=== PATIENT | female | born 1995 | race Caucasian/White ===

== ENCOUNTER 2022-07-28 08:00 | Outpatient (RCR) | payer SELFPAY ==
--- NOTE | 2022-07-28 09:00 | BH.SGPN.GN ---
Behaviors/Verbalizations/Mental Status: [] Client alert and oriented, casually dressed and groomed. Eye contact good. Motor activity appropriate. Speech within normal limits. Affect constricted, mood anxious. Thoughts linear, logical, no signs of hallucinations or delusions. Reviewed client?s symptom tracker, no risk for suicidal ideation, plan, or intent as of 11/30/21. Client Response/Progress/Benefit: [] Client's first day in program and getting adjusted to group environment. Responded well to group by being attentive to others's as they shared. Client introduced herself to group and indicated that she wants to how to better manage her emotions while in this program.Responded well to feedback from other group members on positives they have gotten out of the program so far. She will continue IOP tx to increase coping skills, prevent decompensation, and increase overall functioning. Narrative Note: []
--- NOTE | 2022-07-28 10:10 | BH.SGPN.GN ---
Behaviors/Verbalizations/Mental Status: []Eye contact is good. Motor activity is appropriate. Appearance is casual. Speech is Appropriate. Mood is anxious and depressed. Affect is flat. Thoughts are linear and logical. No evidence of psychosis. Client Response/Progress/Benefit: []Pt was an active participant in group discussions and activities. Attentive during psychoeducation. Pt took notes during interactive discussion in which the group defined self-care and discussed its benefits. Worked with peers in a small group to identify myths related to self-care which included; Self-care is expensive, self-care is selfish, not everyone deserves self-care, self-care means a person is weak, and self-care takes up too much time. Pt participated in small groups where they worked to bust these self-care myths. Pt did well to relate experiential activity to the topic of self-care and its benefit to mental health. Benefited from increased awareness of self-care, its benefits, and the consequences of not utilizing self-care strategies. First day of IOP tx. Will continue in IOP to prevent decompensation, increase healthy coping, and improve functioning.? Narrative Note: []
--- NOTE | 2022-07-28 10:33 | BH.COMM ---
Communication Note - Communication with Client Communication Note: Met with pt to complete initial paperwork. No significant changes since pre-admission screening. Completed [place] [facility]. Moderate risk. Pt reports having thoughts of killing herself daily within the last month, but denies intent. No active SI today. Pt has been getting Ketamine tx which pt reports has been significantly reducing her SI. Contracts for safety. Consulted with Dr. Rudd with plan to admit to IOP level of care with dx of MDD, recurrent, severe without psychosis F 33.2
--- NOTE | 2022-07-28 11:10 | BH.SGPN.GN ---
Behaviors/Verbalizations/Mental Status: []Pt alert and oriented, casually dressed and groomed. Eye contact good. Motor activity appropriate. Speech within normal limits. Affect congruent, mood anxious and depressed. Thoughts linear, logical, no signs of hallucinations or delusions. Client Response/Progress/Benefit: []Pt engaged participant AEB completing self-assessment worksheet and providing input throughout discussion. Participated in group discussion on the various areas of self-care. Pt completed worksheet identifying current self-care practices and what self-care activities pt wants to start using. Pt selected emotional self-care to begin practicing more consistently. Pt plans to do this by challenging herself to journal and practice self-reflection. Appeared to benefit from completing the self-care evaluation and gaining insights into current self-care practices, as well as identifying areas in which pt ?would like to improve upon. Pt?s first day of IOP tx. ?Will continue IOP tx to prevent decompensation, improve daily functioning, and increase healthy coping skills. ??? Narrative Note: []
--- NOTE | 2022-08-01 09:05 | BH.SGPN.GN ---
Behaviors/Verbalizations/Mental Status: []Eye contact good, casually dressed, motor activity appropriate, speech normal rate and tone, mood depressed and anxious, congruent affect, thoughts linear and intact, no evidence of delusions or hallucinations. Reviewed pt's symptom tracker, suicidal ideation within baseline, pt denies plan, or intent as of this date. Future oriented. Client Response/Progress/Benefit: []Pt responded well to session, attentive and willing to process with group. Pt reports feeling anxious this morning as she is new to group therapy and nervous about it. Pt did well to identify current mental health wins which included coming back for her second day in the program despite feeling unsure about it. Additional win noted as completing the final session of ketamine tx. Expressed that this has actually been helpful for her and she feels more hopeful about IOP tx as a result. Appeared to benefit from group?discussion and supportive environment. Recommended continued IOP tx to continue to improve healthy skills, promote anxiety management, as well as prevent decompensation. Narrative Note: []
--- NOTE | 2022-08-01 11:10 | BH.SGPN.GN ---
Behaviors/Verbalizations/Mental Status: [] Client alert and oriented, casually dressed and groomed. Eye contact intense. Motor activity appropriate. Speech within normal limits. Affect flat, mood anxious. Thoughts linear, logical, no signs of hallucinations or delusions. Client Response/Progress/Benefit: [] Client receptive of session with still adjusting to group environment, engaged throughout AEB actively listening and contributing to discussion when prompted, as well as taking notes. Client participated in the experiential activity, but struggled to communicate ideas with peers and manage emotions. Client and group processed how the emotions and perspective of the group impacted the activity. Group worked together to identify different coping skills to help manage pitfalls. Client identified pitfalls they struggle with and shared wanting to work on thought challenging and processing events logically to help manage symptoms. Benefited from identifying personal pitfalls and strategies to overcome these pitfalls. Will continue IOP tx to increase overall functioning, prevent decompensation and challenge negative thinking patterns. Narrative Note: []
--- NOTE | 2022-08-01 12:25 | BH.PSA_ITS ---
Suicide Assessment Treatment Plan Recommendations
--- NOTE | 2022-08-01 12:25 | BH.MTP ---
[facility] Plan - Patient Information Program Physician:: Dr. Nicole Stovall Primary Therapist:: Tammy WEBSTER - Psychiatric Diagnoses Psychiatric Diagnoses:: Major depressive disorder, recurrent, severe without psychosis F33.2; Generalized anxiety disorder Diagnosis Code(s):: F 33.2 - Estimated LOS Estimated LOS (in weeks):: 6 Problem/Goal #1 - Problem/Goal #1 Stated Goal:: Pt will decrease depressive symptoms, hopelessness, worthlessness, negative self-talk, and fleeting SI. Description of Barriers: Pt reports anxiety about group and admits to some stigma about mental health treatment. Pt endorses negative core beliefs of self and refers to herself as a people pleaser. Pt also reports not knowing herself fully which reinforces depression and isolation. Functional Impact: Pt is a 26 year-old female with a history of MDD and BRITTNEY. Pt was referred to [facility] tx by her outpatient psychiatrist, Dr. Hernandez, due to worsening depressive symptoms and fleeting SI. Pt has been unable to work for almost a month due to her worsening symptoms. Pt has been receiving Ketamine tx and this has helped some, but pt still endorses significant depression. Pt presents to [facility] with lack of motivation, anhedonia, avoidance, crying spells, hopelessness, worthlessness, low energy, increased sleep, isolative behaviors, and poor appetite. Pt has moved back home with her parents due to depression impacting her ADLs. Goal Relevant Strengths/Supports: Pt has strong support from her family and pt sees Dr. Hernandez for psychiatry. Pt has been getting Ketamine tx and reports this has helped reduced SI. - Objectives Objective #1 Stated Objective: Pt will learn and utilize 2-3 healthy coping strategies to better manage depressive symptoms and decrease DMS-5 symptoms for depression. Interventions: Through group and individual sessions, therapist will help pt identify triggers and warning signs of depression and guilt including emotional, physical, and behavioral changes. Therapist will teach pt various coping skills to manage symptoms and give pt tangible resources to use to regulate emotions. Therapist will use cognitive restructuring techniques and help pt gain awareness of negative thoughts that reinforce guilt and depression. Therapist will provide psychoeducation on maintenance cycles and help pt learn ways to break unhealthy maintenance cycles. Therapist will help pt incorporate behavioral activation and assist pt in setting SMART goals. Discharge Criteria: Pt will have met this goal when can report learning and using at least 2 coping skills to manage depressive symptoms and when pt's DSM-5 scores for depression decrease. Target Date: 09/08/22 Review Date: 08/18/22 Status: open Objective #2 Stated Objective: Pt will identify at least 2-3 negative self-talk messages used to reinforce negative core beliefs, worthlessness, and isolation and replace thoughts with balanced, realistic messages. Interventions: Therapist will help pt identify distorted, negative beliefs about self and replace with more realistic, affirmative messages. Therapist will use CBT and DBT to help pt increase insight to the connection between thoughts, emotions, and behaviors. Therapist will encourage pt to practice thought challenging. Discharge Criteria: Pt will have achieved this goal when can verbalize at least 2 cognitive distortions and effectively replace those thoughts with affirmative messages. Target Date: 09/08/22 Review Date: 08/18/22 Status: open Problem/Goal #2 - Problem/Goal #2 Stated Goal:: Pt will reduce anxiety, avoidance, and rumination while increasing ability to function on daily basis Description of Barriers: Pt reports anxiety about group and admits to some stigma about mental health treatment. Pt endorses negative core beliefs of self and refers to herself as a people pleaser. Pt also reports not knowing herself fully which reinforces depression and isolation. Functional Impact: Pt is a 26 year-old female with a history of MDD and BRITTNEY. Pt was referred to [facility] tx by her outpatient psychiatrist, Dr. Hernandez, due to worsening depressive symptoms and fleeting SI. Pt has been unable to work for almost a month due to her worsening symptoms. Pt has been receiving Ketamine tx and this has helped some, but pt still endorses significant depression. Pt presents to [facility] with lack of motivation, anhedonia, avoidance, crying spells, hopelessness, worthlessness, low energy, increased sleep, isolative behaviors, and poor appetite. Pt has moved back home with her parents due to depression impacting her ADLs. Goal Relevant Strengths/Supports: Pt has strong support from her family and pt sees Dr. Hernandez for psychiatry. Pt has been getting Ketamine tx and reports this has helped reduced SI. - Objectives Objective #1 Stated Objective: Pt will identify 2-3 anxiety triggers and 2 coping skills to use when feeling anxious to manage anxiety as shown by decreasing DSM-5 scores for anxiety. Interventions: Pt will provide education on anxiety, avoidance behaviors, and maintenance cycles. Therapist will help pt explore personal symptoms and warning signs of anxiety. Therapist will teach pt coping skills to improve emotional regulation, mindfulness, and distress tolerance to help pt cope with anxiety in the moment. Discharge Criteria: Pt will have accomplished this goal when can identify at least 2 triggers and report using 2 coping skills to manage anxiety. Additionally, pt will have accomplished this goal when DSM-5 scores show a reduction in symptoms. Target Date: 09/08/22 Review Date: 08/18/22 Status: open Objective #2 Stated Objective: pt will identify 2-3 cognitive distortions that lead to rumination and learn 2-3 ways to manage these thoughts to better manage anxiety Interventions: Therapist will provide education on the most common cognitive distortions and teach pt the connection between thoughts, emotions, and feelings. Therapist will assist pt in identifying, challenging, and replacing dysfunctional thoughts with positive, more realistic thoughts. Therapist will use CBT and DBT techniques to help pt gain awareness of thinking errors and learn how to more effectively handle negative thoughts. Discharge Criteria: Pt will have accomplished this goal when can identify at least 2 cognitive distortions and at least 2 coping skills to manage negative thoughts. Target Date: 09/18/22 Review Date: 08/18/22 Status: open
--- NOTE | 2022-08-01 12:25 | BH.PSA ---
Suicide Assessment Treatment Plan Recommendations
--- NOTE | 2022-08-01 12:25 | BH.PSA ---
Source of Information - Presenting Problems/Circumstances Problems, Referral Source, Mental Status, Client: Pt is a 26 year-old female with a history of MDD and BRITTNEY. Pt was referred to [facility] tx by her outpatient psychiatrist, Dr. Hernandez, due to worsening depressive symptoms and fleeting SI. Pt has been unable to work for almost a month due to her worsening symptoms. Pt has been receiving Ketamine tx and this has helped some, but pt still endorses significant depression. Pt presents to [facility] with lack of motivation, anhedonia, avoidance, crying spells, hopelessness, worthlessness, low energy, increased sleep, isolative behaviors, and poor appetite. Pt has moved back home with her parents due to depression impacting her ADLs. Psychiatric Presentation - Psych Issues & Need for Admission Psychiatric Issues:: Major depressive disorder, recurrent, severe without psychosis F33.2; Generalized anxiety disorder Past Psychiatric History - Treatment Hx Treatment History: Pt has a psychiatrist, Dr. Hernandez, for about 18 months. Pt has no psychiatric admissions in the past. No suicide attempts. She was first depressed in 12th grade and it was severe. Pt also first took meds in 12th grade and has been mostly off medication since that time. She has only taken 2 psych meds in the past which were Lexapro and Zoloft and they gave her side effects and she does not like taking them. She started IV ketamine on July 08, 2022 and this has been helpful and she has received 9 treatments. She first had counseling in 12th grade on and off since then but no counseling since 2 years ago. First hospitalization:: n/a Most recent hospitalization:: n/a Medication Trials:: Yes ECT Therapy:: No - No but pt has received Ketamine treatments Age of first mental health symptoms: See tx history Describe (age, circumstance, etc) any past hospitalizations: No admissions Current providers for mental health treatment (counselor, psychiatrist, medical case worker, etc.): Pt sees Dr. Hernandez at [place] [id number] for medication management. Pt does not have outpatient therapy. Development & Family of Origin - Childhood Significant Childhood Events: Pt grew up in a loving family and denies abuse. She does admit there was a lot of pressure and high expectations for her. - Family Who currently lives in your home?: Pt has a home in [place], but pt is currently staying with her parents in [place] while she gets mental health treatment. Describe family composition:: Pt's parents are and loving per pt's report. Pt is close with her family, especially her brother and his . Pt has a boyfriend of about a year and pt reports this is a good relationship. Pt has never been and has no children. - Family History Family Hx of Psychiatric or AOD Problems: Father has a history of depression and he has tried a lot of medications and has been resistant to most medications. He has had TMS in the past and has had an EEG as part of his work-up. There is a lot of depression on her father side of the family. Older brother has seasonal depression but is untreated. There is no suicides in the family. No substance abuse in the family. Ethnicity - Culture Do you identify yourself with any particular cultural, ethnic background, or community?: No - Sexuality Sexual Orientation: Heterosexual Mental Status - Memory Recent Memory: Good Remote Memory: Good - Concentration Concentration: Good - Eye Contact Eye Contact: Good - Speech Speech: Soft - Thought Process Thought Process: Ruminations Insight: Fair Judgment: Good - Orientation Orientation: Time, Person, Place, Situation - Appearance Appearance: Neat/clean - Mood Mood: Anxious, Depressed - Affect Affect: Flattened Suicide Assessment - Suicidal Ideation Have you ever felt like hurting yourself?: Yes Please explain:: Prior to receiving ketamine she was somewhat obsessed with suicidal ideation and was thinking about it all day. She has had thoughts of self-harm by cutting but she has never done any self-harm. Were you using ETOH/drugs at the time?: No Suicidal Intentional Rating Scale (SIRS): Current suicidal thoughts/No plan/Contracts for safety - admits to passive thoughts of but states that she is no longer having the suicidal ideation since the ketamine. Physician Notification: If Active suicidal thoughts/Will not contract for safety is checked, contact physician and document in the Physician Notification section below. Violent Behavior/Abuse History - Homicidal Ideation Do you have any homicidal thoughts? If so, explain:: No Is there a known potential victim? If yes, who:: No - Abuse Have you ever been abused?: No - Life Events Are there any other significant life events?: Hardships - Pt's depression has been impacting her ability to function in many areas such as socially and occupationally. Pt also is stressed about not knowing where she and her boyfriend will be going for her boyfriend's residency. - Safety Do you ever feel threatened in your home? If yes, describe:: No Adult Social History - Age 18 to Present Describe your current support system:: Boyfriend of 1 year who is a resident physician up in the [facility] and he is supportive of her. For primary support she has her mother and father, brother and [id number]. Substance Use - Substance Substance Use Type: Alcohol - She has a drink of alcohol about twice a month. No smoking and no vaping and no marijuana or illicit drug use. No rehab ever, Caffeine Leisure/Social Activities - Interests What do you enjoy or might be interested in learning about?: Pt enjoys being a nurse, being with her family, and skiing. Pt shares that one of her biggest stressors is not knowing who she is and not having any hobbies. Education & Occupational Histo - Education What is your level of education?: Bachelor Degree - She graduated high school and went to college. Became an RN. 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 Service - Service Have you ever been in the ?: No Legal History - Records Have you had any past legal charges?: No Do you have any current legal charges?: No Have you ever been incarcerated? If yes, describe:: No - Court Orders Have you had any past court orders for psychiatric treatment?: No Do you have a present court order for psychiatric treatment?: No Problem Checklist - Current Problem Areas Problem List: Nutritional/Eating pattern changes, Depressed mood/sad, Anxiety, Inattention, Sleep problems, Additional psychosocial stressors Discharge Planning Needs - Anticipated Follow-Up Mental Health Center (Name/Phone Number):: [id number] Private Therapist/Psychiatrist:: Dr. Hernandez Model Set Artist's Assessment - Client's Needs What are the client's strengths?: Pt has strong support from her family and pt sees Dr. Hernandez for psychiatry. Pt has been getting Ketamine tx and reports this has helped reduced SI. Diagnoses - Diagnoses Diagnosis #1:: Major depressive disorder, recurrent, severe without psychosis F33.2 Diagnosis #2:: Generalized anxiety disorder Interpretive Summary - Interpretive Summary Interpretive Summary: pt is a 26-year-old single female with a history of depression and anxiety who was referred to the [facility] by her outpatient psychiatrist, Dr. Hernandez, due to worsening symptoms of anxiety and depression. 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 Pt normally lives in [facility] alone but currently she is living with her parents in [facility] since July 04, 2022 when her depression worsened. This exacerbation of depression is the worst that she has ever experienced although she has had depression in the past. She is not aware of any trigger to the worsening of her depression. She is a worrier by nature and is having panic attacks about once a week now, but they are not severe like they have been in the past. She has a boyfriend of one year who is a resident physician up in the [facility] and he is supportive of her. For primary support she has her mother and father, brother and [id number]. She has been sleeping about 5 hours in the last week or so with some initial insomnia and wakes up during the night. 3 weeks ago she was sleeping a little better at 6 to 7 hours a night. Pt's depression was severe but she has been receiving 9 rounds of IV ketamine by her psychiatrist which she feels has improved her symptoms somewhat. She has much less suicidal ideation now and in fact denies suicidal ideation in the past week. She also states her energy level and appetite are a little better but she is still not back to her normal baseline. She is considering switching to intranasal ketamine from the IV ketamine treatment soon. Pt had an episode of depression in 2013 and took Lexapro for it but this but it was not severe like this episode. She has had ongoing anxiety and depression for years with minor flares and it is often controllable but this one has been the longest and the most severe episode. Prior to receiving ketamine, she was somewhat obsessed with suicidal ideation and was thinking about it all day. Pt shared she has had thoughts of not wanting to wake up, but this episode was the first time she ever had thoughts of actually killing herself. She was having difficulty completing her activities of daily living, decreased appetite and low energy which has improved since the ketamine. She has had thoughts of self-harm by cutting but she has never done any self-harm. She is anhedonic and feels some hopelessness and guilt. Pt feels she is a burden to her family and friends and admits to passive thoughts of but states that she is no longer having the suicidal ideation since the ketamine. She is a people pleaser by nature she says and is a worrier. She denies homicidal ideation, hallucinations, delusions, faina, eating disorder, PTSD, trauma, seizures, OCD or head trauma. She denies any substance abuse. Family history of depression and anxiety. Treatment Plan Recommendations - Recommendations Guidelines: Special needs identified to be included in the development of an individualized treatment plan regarding past psychiatric history and treatment, developmental events, family relationships/events/culture, past and/or current educational, occupational, social, and residential experience, and legal status. Recommendations:: Pt will start IOP as the structure, support, education and group therapy will hopefully prevent further worsening of pt's symptoms that might require hospitalization. Pt felt safe during the interview and if at anytime she does not feel safe she will let us know or go to the emergency room. Pt reports she is pleased with the results of the ketamine and does not want any medication changes now. Pt's outpatient psychiatrist will continue to manage her medications. Pt will need an outpatient therapist prior to discharge.
--- NOTE | 2022-08-01 12:25 | BH.MDN ---
Multi-Disciplinary Note - Note 30-min Individual Time Started:: 12:05 Date: 08/01/22 Purpose of session/treatment goals addressed:: To gather information on pt's current stressors, symptoms, triggers, and tx goals. Another goal was to build rapport and provide emotional support. Eye Contact:: Other - stares Motor Activity:: Appropriate Appearance:: Neat Speech:: Soft Mood:: Anxious, Depressed Affect:: Flat Thoughts:: Linear, Logical, No evidence of hallucinations/delusions noted Staff Interventions:: rapport building, strengths perspective, treatment planning, goal setting Client Response:: Pt responded well to session, open to meeting with therapist. Pt reports she is anxious about tx, but pt has been surprised by how nice everyone has been. Pt shared her symptoms have been worsening over the past few months and have been impacting all areas of her life. 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 This leads to pt people pleasing at work and feeling burnout from taking on too much. Pt also shared belief that she is too accommodating and she wants to work on being more assertive. Pt has had counseling in the past, but she shared she did not go consistently. Pt also reports wanting to work on confidence and not comparing herself so much to her mother. Pt receptive to meeting with therapist weekly and working on self-compassion, goal setting, and thought challenging. Pt will see Dr. Stovall this Monday08/03/22. Risks/Concerns:: Pt denies any active suicidal ideations, plan, or intent as of 08/01/22. Pt reports having fleeting suicidal ideations within the last month, but denies any intent. Pt is currently getting ketamine tx and reports this has been helpful. Progress Toward Goals/Plan:: Pt recently starting IOP tx and is anxious about the program, but she reports it is going better than anticipated. Pt reports her symptoms are impacting all areas of her life and have been so intense that she started ketamine treatment. Pt endorses a depressed mood, anhedonia, crying spells, fleeting suicidal ideations, isolative behaviors, lack of energy, negative thinking, and hopelessness. Pt will continue IOP tx to prevent decompensation, gain healthy coping skills, and help pt return to normal level of functioning. Time Stopped:: 12:25
--- NOTE | 2022-08-03 10:10 | BH.SGPN.GN ---
Behaviors/Verbalizations/Mental Status: []Pt alert and oriented, neatly dressed and groomed. Eye contact good. Motor activity appropriate. Speech within normal limits. Affect flat, mood dysthymic. Thoughts linear, logical, no signs of hallucinations or delusions. Client Response/Progress/Benefit: []Pt responded well to session, attentive during psychoeducation on SMART goals (Specific, Measurable, Achievable, Realistic, and Time-bound) and engaged in group experiential activity. Participated in an interactive discussion with peers in which they worked together to define what a goal is and the benefits of having goals. Group identified benefits as; gives purpose, ?keeps us moving,? and personal growth. Participated in interactive discussion in which group identified barriers to setting goals and following through with goals. Personal barriers included past experiences, fear, forgetfulness, and comparing herself to others. Benefited from increased awareness of benefits and strategies for goal-setting. Will continue in IOP to prevent decompensation, improve mood stability, and improve ability to combat distortions. Narrative Note: []
--- NOTE | 2022-08-03 10:20 | BH.NA ---
Physical Data - Vital Signs Pulse Rate: 62 Blood Pressure: 126/88 - Height/Weight Height: 1.68 m Weight:: 68.039 kg Weight in Pounds: 150.0 lbs Current Medication Compliance - Medication Compliance Do you take your medication as prescribed?: Yes Nutritional History - Appetite Nutritional Instructions:: If client shows signs of a swallowing problem, weight change of 10 pounds or more in the last month, or is on a diabetic diet, the physician will review and request a dietitian consult, as appropriate. All unintentional weight loss will be referred to the physician for decision on need for dietitian consult. Describe your appetite:: Fair - Client states she has not had significant weight change, but her appetite was decreased and is improving. Functional Assessment - Sleep Pattern Describe any problems with sleeping: Client states she is sleeping 5-6 hours per night. - Activities Motor Activity:: Functional Sensory/Communication Assess - Hearing Problems Do you have any hearing problems?: Adequate - Communication Problems Do you have difficulty understanding what people are saying?: No Learning Assessment - Education What is your level of education?: Bachelor Degree Medical Problems/History - Cardiac Conditions Cardiovascular: Other (See comments) - history of heart murmur as a baby- resolved - Pain Assessment Do you have acute or chronic pain?: No Surgical History - Surgical History Have you had any surgeries? If so, list type and date:: Yes - wisdom teeth extraction Substance Abuse - Substance Abuse Please describe substance abuse in the last 30 days:: Client states she occasionally socially drinks alcohol. Client denies tobacco or substance use. Client drinks 1-3 caffeine drinks per day, coffee and tea. Mental Status Summary - Mental Status Significant Findings/Observations on Appearance and Mood:: Client is alert and oriented x 4. Client is casually groomed with good hygiene. Clients voice has normal rate and volume. Client makes fair eye contact. Client's affect is slightly flat. Client makes logical associations and has normal processing. Client denies delusions/hallucinations. Client reports some passive SI. Suicide Assessment - Suicidal Ideation Are you currently or have you been suicidal in the past?: Yes - passive SI I wish I didn't wake up today, no plan or intent Suicidal Intentional Rating Scale (SIRS): Current suicidal thoughts/No plan/Contracts for safety Physician Notification: If Active suicidal thoughts/Will not contract for safety is checked, contact physician and document in the Physician Notification section below. Assault History/Potential Past Psychiatric History - MH Treatment Hx Past Psychiatric Medications:: Zoloft, Lexapro, a few doses of Ativan Age of first mental health symptoms: Client states she had her first major episode of depression around age 18. Client was first on medications for mental health at age 18. Describe (age, circumstance, etc) any past hospitalizations: None. Current providers for mental health treatment (counselor, psychiatrist, high risk case manager, etc.): Dr. Hernandez at [address] psychiatry. Fall Risk Assessment - Age Age: Less than 60 - Mental Status Mental Status: Willing & able to ask for assistance when needed - Physical Status Physical Status: No problems - Impairments Impairments: None - Elimination Elimination: Continent AND independent - Gait or Balance Gait or Balance: Walks independently - Hx of Falls History of falls in the past 6 months: No known history - Medications/Substances Psychotropics:: Antidepressants Medications/substances used within the past 24 hours or ordered to administer: 1-2 of the medications/substances listed above - Total Score Total Points:: 1 RN Summary of Impressions - Impressions Recommendations: Include psychiatric and medical issues, treatment planning recommendations, and discharge planning needs. Impressions: Psychiatric Issues: 1. Major depressive disorder, recurrent, severe without psychosis. 2. Generalized anxiety disorder - Level of Care How do the client's current symptoms and functional deficits support need for this level of care?: Client was referred to IOP by outpatient psychiatry for depression and SI. Client states she does not know what triggered her major depressive episode that really got intense at the beginning of June. She said her psychiatrist Dr. Hernandez started doing Ketamine infusions and her suicidal ideations (obsessive suicidal thoughts with plans) began to decrease but client states she still has passive SI, waking up in the morning and wishing she had not woke up. Client states she has been having panic attacks about once per week, and last had one Monday with her Ketamine infusion that she was given IV Ativan and Versed for. Client endorses crying spells, isolation and anhedonia. Client has been off work due to her mental health. IOP will promote gains and prevent further decompensation while providing social support and skills training.
[2022-08-03 10:44] VITALS: BP 126/88; PULSE 62
--- NOTE | 2022-08-03 11:10 | BH.SGPN.GN ---
Behaviors/Verbalizations/Mental Status: []Pt alert and oriented, neatly dressed and groomed. Eye contact good. Motor activity appropriate. Speech within normal limits. Affect constricted, mood anxious and depressed. Thoughts linear, logical, no signs of hallucinations or delusions. Client Response/Progress/Benefit: []Pt was engaged during discussion and willing to complete the worksheet challenging them to develop a personal SMART goal. Pt chose the goal of writing down one positive/ mental health win each night for a week. Pt stated this will benefit them by increasing confidence, building trust in herself, and increasing self-awareness. Pt identified barriers which included forgetfulness, making excuses, and negative thought patterns. Pt receptive to identifying solutions for these barriers and willing to begin working on this goal. Benefited from this group by developing a short-term SMART goal related to mental health. Will continue IOP tx to prevent decompensation, gain healthy coping skills to manage depression, and gain healthy supports. Narrative Note: []
--- NOTE | 2022-08-03 12:40 | PCM.BH.PSYEV ---
Psychiatric Evaluation Initial Evaluation Initial Evaluation: History of Present Illness: [] The patient is a 26-year-old single female with a history of depression and anxiety who was referred to the [facility] behavioral health IOP program by her outpatient psychiatrist due to worsening symptoms of anxiety and depression. 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 She lives in [facility] alone but currently she is living with her parents in the [facility] since July 04, 2022 when her depression worsened. This exacerbation of depression is the worst that she has ever experienced although she has had depression in the past. She is not aware of any trigger to the worsening of her depression. She is a worrier by nature and is having panic attacks about once a week now but they are not severe like they have been in the past. She has a boyfriend of 1 year who is a resident physician up in the [facility] and he is supportive of her. For primary support she has her mother and father, brother and [id number]. She has been sleeping about 5 hours in the last week or so with some initial insomnia and wakes up during the night. 3 weeks ago she was sleeping a little better at 6 to 7 hours a night. The patient's depression was severe but she has been receiving 9 rounds of IV ketamine by her psychiatrist which she feels has improved her symptoms somewhat. She has much less suicidal ideation now and in fact denies suicidal ideation in the past week. She also states her energy level and appetite are a little better but she is still not back to her normal baseline. She is considering switching to intranasal ketamine from the IV ketamine treatment soon. Patient had an episode of depression in 2013 and took Lexapro for it but this but it was not severe like this episode. She has had ongoing anxiety and depression for years with minor flares and it is often controllable but this 1 has been the longest and the most severe episode. Prior to receiving ketamine she was somewhat obsessed with suicidal ideation and was thinking about it all day. She was having difficulty completing her activities of daily living, decreased appetite and low energy which has improved since the ketamine. She has had thoughts of self-harm by cutting but she has never done any self-harm. She is anhedonic and feels some hopelessness and guilt. She feels she is a burden to her family and friends and admits to passive thoughts of but states that she is no longer having the suicidal ideation since the ketamine. She is a people pleaser by nature she says and in a worrier. She denies homicidal ideation, hallucinations, delusions, faina, eating disorder, PTSD, trauma, seizures, OCD or head trauma. She drinks 2 cups of coffee a day but no energy drinks. Current Psychiatric Medications: [] IV ketamine treatments as noted above. Prozac 20 mg p.o. daily and she has been on this dose for about 10 days. Past psych history: she has a psychiatrist Dr. Hernandez for about 18 months. She has no psychiatric admissions in the past. No suicide attempts. She was first depressed in 12th grade where it was severe. She first took meds in 12th grade and has been mostly off medication since that time. She has only taken 2 psych meds in the past which were Lexapro and Zoloft and they gave her side effects and she does not like taking them. She started IV ketamine on July 08, 2022 and this has been helpful and she has received 9 treatments. She first had counseling in 12th grade on and off since then but no counseling since 2 years ago. Substance Use History: [] She has a drink of alcohol about twice a month. No smoking and no vaping and no marijuana or illicit drug use. No rehab ever. Allergies: [] No known allergies. Medications: [] None except psych as noted above. Past Medical History: [] No medical illnesses. [place] teeth surgery in 2016. Fractured foot and broken finger and broken leg as a child. 0 para 0 and no control. Family Psychiatric History: [] Mother's and father are both about 56 years old. Father has a history of depression and he has tried a lot of medications and has been resistant to most medications. He has had TMS in the past and has had an EEG as part of his work-up. There is a lot of depression on her father side of the family. Older brother has seasonal depression but is untreated. There is no suicides in the family. No substance abuse in the family. Personal/Social History: [] The patient grew up in [facility] and moved to [facility] where she works as a pediatric nurse at [employer]. She moved back home since July 04 and took a leave of absence from work. She grew up in a loving family and denies abuse. She does admit there was a lot of pressure and high expectations for her. Her parents are well-known in [place] under father owns a very successful [employer] company in [place] and she has always felt a lot of pressure because of this. She has a brother lives near her in [place] who is very supportive along with his . The patient states she is not a talker about her feelings. The patient states she loves her mother but feels she is very different than her mother as her mother is positive and bubbly. She denies any trauma or PTSD. She enjoys being outside and going to the family's granda house on [address] in the summer and snow skiing in the winter. She graduated high school and went to college. Became an RN. Current relationship of 1 year is a serious and he is supportive of her with no abuse in the relationship. She had a serious boyfriend in the past that she was with for 3 years but this ended 18 months ago. Legal History: [] Has restaurant delivery driver's license. No DUIs and no arrests. Review of Systems: [] Negative except as noted in the present illness. Vital Signs: [] Vital signs are reviewed in the records and in the nurses notes and updated and the patient is deemed medically able to participate in the IOP program. Mental Status Examination: [] The patient is a 26-year-old female who appears normal for stated age and is casually dressed and groomed with good hygiene. She is alert and oriented to person place and time and is ambulatory with a normal gait. She is cooperative during the interview but is somewhat reticent with brief 1 or 2 word answers. She has no psychomotor agitation or retardation. Eye contact is good and speech is quiet but fluent with normal rate and rhythm and no pressure. Mood is depressed and anxious. Affect is quite flat. Thought process is goal-directed and organized. Thought content: There is evidence of passive thoughts of . There is no evidence of plan for suicide, current suicidal ideation, homicidal ideation, hallucinations or delusions. Reality testing is intact. Impulsivity is moderate. Judgment is intact. Intelligence is above average. Insight is fair to good. Diagnoses: [] 1. Major depressive disorder, recurrent, severe without psychosis 2. Generalized anxiety disorder 3. Primary support, work issues Plan: [] The patient will start the IOP program at [facility] as the structure, support, education and group therapy will hopefully prevent further worsening of the patient's symptoms that might require hospitalization. The patient felt safe during the interview and if it anytime she does not feel safe she will let us know or go to the emergency room. The risks, options, possible complications and side effects of the medications were discussed with the patient and she understands and accepts these. She is pleased with the results of the ketamine and does not want any medication changes now. She is offered a trial of Remeron but she does not want to risk any weight gain. The Prozac dose was increased 10 days ago so no other medication changes were made today. The patient does agree to try melatonin 5 or 10 mg p.o. at bedtime to help with sleep and if that does not work she is given a prescription for hydroxyzine 25 mg, 1-2 p.o. at bedtime to help with sleep and she can take 1 p.o. to help with the panic attack as long as she does not drive if she becomes drowsy. Prescription is sent in for this. The patient will continue to follow-up with her outpatient providers for her ketamine treatment and I will see the patient in follow-up while she is in the IOP program and in 1 to 2 weeks.
--- NOTE | 2022-08-03 12:55 | BH.DR.ITP ---
Initial Treatment Plan Patient Information Visit Information: ADMISSION DATE: EXPECTED LOS: 4-6 weeks Problems/Symptoms Problem #1:: Depression Symptom:: Sadness, hopelessness, worthlessness, guilt, anhedonia, biological disruption of sleep, fatigue, passive thoughts of Problem #2:: Anxiety Symptom:: Worry, rumination, panic attacks, avoidance
--- NOTE | 2022-08-08 09:00 | BH.SGPN.GN ---
Behaviors/Verbalizations/Mental Status: [] Eye contact is good. Motor activity is appropriate. Appearance is casual. Speech is Appropriate. Mood is euthymic. Affect is full. Thoughts are linear and logical. No evidence of psychosis. Reviewed daily check in sheet and pt reports 2/5 for suicidal thoughts and 2/5 for intent. This has been baseline. Client Response/Progress/Benefit: [] Pt participated at times during the group discussion. Attentive. Daily symptom tracker notes 4/5 for anxiety and 3/5 for depression and irritability. Shared with the group that she was able to utilize skills over the weekend to help manage through an out-of-town trip with her family. I used a lot of opposite-action. Increased mental stability and decreased depression in the past week however reports increased anxiety. Improved energy and motivation. Shared that she is learning to manage her emotional highs and lows with the help of counseling and medications. Stressor is poor sleep. Benefited from group support, encouragement, and feedback. Will continue in IOP to prevent decompensation, maintain safety, and improve functioning to return to work. Narrative Note: []
--- NOTE | 2022-08-08 10:00 | BH.SGPN.GN ---
Behaviors/Verbalizations/Mental Status: []Eye contact is good. Motor activity is appropriate. Appearance is casual. Speech is Appropriate. Mood is anxious . Affect is congruent. Thoughts are linear and logical. No evidence of psychosis. Client Response/Progress/Benefit: []Pt was an active participant in group discussions and experiential activity, which is progress as pt has been passive in prior groups. Attentive during psychoeducation on resilience, sharing that to her resilience is being able to adjust when things change. Participated in interactive discussion with peers on the definition of resilience and where it comes from. Shared beliefs that resilience can be developed and has a genetic component. Group identified that resiliency can be impacted by; past experiences, learned behaviors, and limited or toxic supports. Shared she can connect with examples provided by fellow participants. Group also worked together to identify the benefits of being resilient and how it is related to mental health. Able to relate experiential activity of group juggle to topics of resilience. Worked well with peers in small group in which they identified factors that contribute to resilience. Benefited from increased awareness of resilience and the factors that contribute to building resilience. Will continue in IOP to prevent decompensation, improve self-compassion and use of healthy coping skills, as well as continue to improve functioning. Narrative Note: []
--- NOTE | 2022-08-08 11:10 | BH.SGPN.GN ---
Behaviors/Verbalizations/Mental Status: []Pt alert and oriented, neatly dressed and groomed. Eye contact good. Motor activity appropriate. Speech within normal limits. Affect congruent, mood euthymic and anxious. Thoughts linear, logical, no signs of hallucinations or delusions Client Response/Progress/Benefit: []Pt responded well to session AEB completing the resilience worksheet provided. Pt participated in the discussion and worked cooperatively with group to identify strategies to enhance each of the components discussed. Pt reports belief they already use resilience trait of??moving towards your goals? as pt can identify several things she has accomplished through hard work.?Pt stated they would like to continue to develop resilience trait of ?nurturing a positive view of self.? Pt seemed to benefit from discussing strategies for improving personal resilience and identifying resilience traits pt already possesses. Progress noted as pt reports utilizing healthy coping skills outside of IOP tx. Will continue IOP tx to improve daily functioning, reduce negative self-talk, and gain healthy coping skills. ? Narrative Note: []
--- NOTE | 2022-08-10 09:00 | BH.SGPN.GN ---
Behaviors/Verbalizations/Mental Status: [] Eye contact is good. Motor activity is appropriate. Appearance is casual. Speech is Appropriate. Mood is anxious. Affect is congruent. Thoughts are linear and logical. No evidence of psychosis. Reviewed daily check in sheet and pt reports 2/5 for suicidal thoughts and 2/5 for intent. This is baseline. Client Response/Progress/Benefit: [] - Pt participated at times during the group discussion. Attentive. Daily symptom tracker notes 3/5 for depression, anxiety, and irritability. Mental health wins include increased energy and motivation which led to baking which she enjoys. Shared that another win is that she is ?accepting? that it is beneficial for her to be on medications for mental health currently. Stressor is finding ?balance?. Her depression has decreased however her anxiety has increased and she is feeling pressure from family to remain active. Family is supportive however she feels burned out at times and wants to rest and family gets concerned if she sleeps or is not active. Group provided support and emphasized which was beneficial. Will continue in IOP to prevent decompensation, stabilize mood, and improve function to return to work. Narrative Note: []
--- NOTE | 2022-08-10 11:14 | BH.SGPN.GN ---
Behaviors/Verbalizations/Mental Status: [] Client alert and oriented, casually dressed and groomed. Eye contact good. Motor activity appropriate. Speech within normal limits. Affect congruent, mood euthymic. Thoughts linear, logical, no signs of hallucinations or delusions Client Response/Progress/Benefit: [] Client responded well to session AEB client listening attentively to others and providing input during group discussion. Client did well in the activity to be assertive and ask for feedback. Recognizes if group wasn't assertive in activity, they wouldn't have been successful. Discussed with group communication strategies used to make activity successful. Attentive during psychoeducation on interpersonal DBT skill VERENICE. Client set a goal to work on being more assertive and clear about what she needs indicating that it's easy for the conversation she intended to go a completely different direction. Client seemed to benefit from increasing awareness of healthy strategies to improve communication. Will continue IOP tx to improve thought processes to combat anxiety, increase self-awareness, and improve daily functioning. Narrative Note: []
--- NOTE | 2022-08-10 14:02 | BH.MDN ---
Multi-Disciplinary Note - Note 45-min Individual Time Started:: 10:20 Date: 08/10/22 Purpose of session/treatment goals addressed:: To work on identifying pt's maintenance cycles for depression and anxiety. Another goal was to discuss ways to increase self-awareness and identify pt's interests. Eye Contact:: Good Motor Activity:: Appropriate Appearance:: Neat Speech:: Soft Mood:: Anxious, Depressed Affect:: Congruent - tearful at times Thoughts:: Linear, Logical, No evidence of hallucinations/delusions noted Staff Interventions:: thought challenging, psychoeducation on: - maintenance cycles, CBT techniques, mindfulness skills - practiced PMR, strengths perspective, goal setting, taught coping skills, other - Gave pt homework to complete the values exploration handout. Client Response:: Pt responded well to session, open to meeting with therapist. Pt reports over the weekend she did a lot of social things which made pt feel good, but pt also noticed increased anxiety. Pt shared belief that her anxiety is becoming more apparent now that pt's depression is reducing. Normalized this and pt responded well to this validation. Pt receptive to learning about maintenance cycles and able to identify her personal maintenance cycles for depression and anxiety. Pt recognized that avoidance and isolation maintain depression and anxiety. Pt gained awareness that in her personal life she turns to avoidance when anxious which then triggers her depressive cycle. However, in pt's professional life, pt overcompensates when anxious which leads to burnout and apathy. Discussed how pt can break these cycles and still have balance for alone time and self-care. Pt recognized that not having hobbies reinforces these maintenance cycles. Pt receptive to completing a values exploration handout for increase self-awareness. Risks/Concerns:: Pt denies any active suicidal ideations, plan, or intent as of 08/10/22. Pt reports her depression is decreasing. Progress Toward Goals/Plan:: Pt continues to make progress towards her tx goals AEB her consistent attendance and her self-report of reduced depressive symptoms. Pt continues to have negative thought patterns and beliefs of self. Pt reports an increase in anxiety symptoms now that her depression is lifting. Pt receptive to learning about maintenance cycles and practiced PMR in session. Pt will continue IOP tx to reduce anxiety symptoms, increase self-compassion, and improve daily functioning. Time Stopped:: 11:08
--- NOTE | 2022-08-11 09:00 | BH.SGPN.GN ---
Behaviors/Verbalizations/Mental Status: [] Eye contact is good. Motor activity is appropriate. Appearance is casual. Speech is Appropriate. Mood is anxious. Affect is congruent. Thoughts are linear and logical. No evidence of psychosis. Reviewed daily check in sheet and pt reports 2/5 for suicidal thoughts and 2/5 for intent. This is baseline. Client Response/Progress/Benefit: [] Pt participated at [id number] during the group discussion. Attentive. Emotion for today is anxious. Daily symptom tracker notes 4/5 for anxiety and 3/5 for depression and irritabiity. She talked a great deal about the struggles that she has communicating openly with her family about her needs. Since her depression is improving she feels pressure to keep moving and being active and is fearful of burning out. I need to rest however feels that if she goes into her room to lay down her family will think she is regressing. She has brought this up before in group. Group encouraged her to communicate her needs to her family highlighting that the best way for them to know how to help you is to tell them. Group also normalized being introvert and needing isolation to recharge the batteries which was beneficial. Will continue in IOP to prevent decompensation, increase healthy coping, and to improve functioning to return to work. Narrative Note: []
--- NOTE | 2022-08-11 10:10 | BH.SGPN.GN ---
Behaviors/Verbalizations/Mental Status: []Client alert and oriented, casually dressed and groomed. Eye contact good. Motor activity appropriate. Speech within normal limits. Affect congruent, mood content and anxious. Thoughts linear, logical, no signs of hallucinations or delusions Client Response/Progress/Benefit: []Client responded well to session AEB providing input when prompted, taking notes, and listening attentively to others. Client was engaged throughout group discussion defining fixed mindset and what it can look like. Group identified several aspects of fixed mindset which included; negative outlook, difficulties taking criticism, absolute thinking, and unrealistic expectations of self/others. Group discussed how fixed mindset affects mental health and why we use fixed thoughts. Client participated in experiential activity encouraging clients to find solutions to a seemingly impossible task. Client identified personal fixed thoughts in session which included ?I?m broken?, ?I?m not fun?, and ?I?m not positive enough?. Client gained insight to how these fixed thoughts impact ability to achieve goals, self-talk, and keep client stuck in unhealthy cycles. Client appeared to benefit from increased knowledge of fixed mindset and self-awareness of personal fixed thoughts. Will continue IOP treatment to reduce depression, increase healthy coping behaviors and thought patterns, and to prevent decompensation. Narrative Note: []
--- NOTE | 2022-08-11 11:10 | BH.SGPN.GN ---
Behaviors/Verbalizations/Mental Status: []Pt alert and oriented, neatly dressed and groomed. Eye contact good. Motor activity appropriate. Speech within normal limits. Affect full, mood euthymic. Thoughts linear, logical, no signs of hallucinations or delusions. Client Response/Progress/Benefit: []Pt engaged during activity and discussion AEB providing some input, connecting with peers, as well as taking notes throughout. Pt did well to engage as group worked on identifying characteristics and benefits of adopting a growth mindset. Worked with fellow participants in reframing the example fixed thoughts into growth mindset thoughts. Reframed personal fixed thought of ?I?m not fun or positive enough? with growth mindset thought of ?I am enough the way I am.? Benefitted from discussing benefits of growth mindset and brainstorming strategies for prompting growth-mindset. Pt selected ?looking at the facts and that thoughts are thoughts not facts? as the coping skill pt wants to work on this week. Pt is doing well to engage and utilize coping skills discussed. Pt will continue IOP tx to increase mood stability, reduce negative thinking, and increase self-care. ? Narrative Note: []
--- NOTE | 2022-08-15 09:03 | BH.SGPN.GN ---
Behaviors/Verbalizations/Mental Status: []Eye contact good, casually dressed, motor activity appropriate, speech normal rate and tone, mood dysthymic and anxious, congruent affect, thoughts linear and intact, no evidence of delusions or hallucinations. Reviewed pt's symptom tracker, pt suicidal ideation and intent noted as 1/5 which is less then prior baseline, denies any current plan or intent as of this date. Future oriented. Client Response/Progress/Benefit: []Pt responded well to session, attentive and willing to process with group. Pt reports feeling ?stressed? this morning noting that this may be due to recent progress in using exposure therapy to address anxiety. Pt did well to identify wins, which included challenging herself to practice progressive muscle relaxation when anxious over the weekend rather than stay in bed as she would usually. Shared being able to accomplish several tasks despite her anxiety as a result. Additional win identified as making progress in working with her dog on behavioral issues which have been reinforcing his anxiety and her own. Current stressor identified as her boyfriend leaving for a new medical rotation for two weeks. Receptive of supportive feedback provided by the group and noted plans to continue to reach out to other supports throughout this time. Progress noted in continuing to apply skills learned thus far in IOP group. Recommended continued IOP tx to continue to improve consistent use of healthy anxiety management skills, promote mood stability, as well as prevent decompensation. Narrative Note: []
--- NOTE | 2022-08-15 10:10 | BH.SGPN.GN ---
Behaviors/Verbalizations/Mental Status: []Pt alert and oriented, neatly dressed and groomed. Eye contact good. Motor activity appropriate. Speech within normal limits. Affect congruent, mood euthymic and anxious. Thoughts linear, logical, no signs of hallucinations or delusions. Client Response/Progress/Benefit: []Pt was an engaged participant AEB providing input, listening to others, and taking notes. Participated in interactive group discussion on internal and external barriers to mental health progress. Pt described current reality using a roller coaster metaphor. Pt shared she feels ?like I just came down from the high of the holidays and crashed into depression.? Reported desired reality is still being on a roller coaster, but having less intense highs and lows. Pt?s strengths in her current reality included accepting the help and sharing in group. Pt shared personal barriers to desired realty include: fear of the unknown, pride, and isolation. Benefited from increased awareness of current barriers to progress as well as current/desired realities. Pt to continue IOP to improve work-related functioning, reduce negative thinking patterns, and increase mood stability. ? Narrative Note: []
--- NOTE | 2022-08-15 11:10 | BH.SGPN.GN ---
Behaviors/Verbalizations/Mental Status: []Pt alert and oriented, casually dressed and groomed. Eye contact good. Motor activity appropriate. Speech within normal limits. Affect congruent, mood euthymic. Thoughts linear, logical, no signs of hallucinations or delusions. Client Response/Progress/Benefit: []Pt engaged during activity, encouraging peers and contributed as group brainstormed ideas on how to cope with internal barriers that keep pts stuck from moving towards goals. Able to identify barriers to desired reality. Identified barriers to current reality to include: fear of unknown, negative self-talk, and pride (internalized mental health stigma). Pt wants to work on overcoming the barrier of pride by using positive self-talk. Benefited from group by identifying obstacles and solutions to desired reality.? Pt will continue IOP tx to continue use of healthy coping skills, challenge distorted thoughts, and prevent decompensation.
--- NOTE | 2022-08-17 09:00 | BH.SGPN.GN ---
Behaviors/Verbalizations/Mental Status: []Pt alert and oriented, neatly dressed and groomed. Eye contact good. Motor activity appropriate. Speech within normal limits. Affect congruent, mood depressed. Thoughts linear, logical, no signs of hallucinations or delusions. Reviewed pt?s symptom tracker, no risk for suicidal ideation, plan, or intent as of 08/17/22 Client Response/Progress/Benefit: []Pt responded well to session, attentive and receptive to encouragement. Pt shared multiple positives today, but reports feeling defeated. Pt shared she feels this way because she can see she has made progress, but pt still has to cope with a lot of unknowns that trigger anxiety. Group provided feedback and encouragement which pt appeared to benefit from. Pt able to give herself credit for using grounding skills, positive self-talk, and self-care recently. Pt is returning to her previous functioning in some ways, but pt is still not ready to return to work which causes anxiety. Pt will continue IOP tx to promote mood stability, improve daily functioning, and combat distortions. Narrative Note: []
--- NOTE | 2022-08-17 11:10 | BH.SGPN.GN ---
Behaviors/Verbalizations/Mental Status: []Eye contact is good. Motor activity is appropriate. Appearance is casual. Speech is WNL. Mood is euthymic. Affect is congruent. Thoughts are linear and logical. No evidence of psychosis. Client Response/Progress/Benefit: []Pt engaged participant AEB providing input during small group discussion and engaging in activity. Activity involved working with peers to answer questions related to psychoeducation on cognitive distortions and practicing reframing distorted thoughts. Pt collaborated with the group to determine the answers. Identified cognitive distortion struggles with the most as labeling and jumping to conclusions. Benefited from rehearsing ways to challenge/reframe cognitive distortions and by gaining increased insight into examples/definitions of 10 most common cognitive distortions. Will continue in IOP to challenge negative thoughts, improve ability to recognize accomplishments, and prevent decompensation.
--- NOTE | 2022-08-17 14:44 | BH.MDN ---
Multi-Disciplinary Note - Note 60-min Individual Time Started:: 12:10 Date: 08/17/22 Purpose of session/treatment goals addressed:: To work on goal #2 of pt's tx plan and to review progress since admission. Eye Contact:: Good Motor Activity:: Appropriate Appearance:: Neat Speech:: Appropriate Mood:: Anxious Affect:: Constricted Thoughts:: Linear, Logical, No evidence of hallucinations/delusions noted Staff Interventions:: thought challenging, motivational interviewing, CBT techniques, strengths perspective, reviewed DSM-5, other - completed a decisional balance and discussed topics to bring up with her partner. Client Response:: Pt responded well to session, open to meeting with therapist. Pt reports feeling overall better and her functioning has improved. However, pt is feeling highly anxious and unsure today because of all the unknowns. Pt received a text message from her boss asking about return to work which triggered anxiety. Pt is unsure if she wants to return to this job. Pt is also unsure where she and her boyfriend will be living in a few months and how her life could change. Pt receptive to breaking down these stressors, looking at what is in pt's control. Pt also identified the concerns and benefits pt has for two potential outcomes. By doing this, pt reported gaining awareness of conversations she wants to have with her boyfriend to clarify expectations and reduce anxiety. Pt plans to talk with her boyfriend nicky and hopes this will help pt express her needs and get on the same page. Risks/Concerns:: Pt denies any active suicidal ideations, plan, or intent as of 08/17/22. Pt's suicidal ideations have decreased by 33% since admission. Progress Toward Goals/Plan:: Pt is making progress towards her tx goals AEB pt's decrease in DSM-5 scores by 17% since admission and her self-report of improved overall functioning. Pt is consistent with attendance, actively engages, and pt completes personal goals and homework. Pt has numerous stressors and unknowns about her future that are triggering anxiety. Pt also continues to struggle with not knowing who she is, but she is working on this goal. Pt will continue IOP tx to promote mood stability, reduce negative thinking patterns, and increase ability to manage stressors. Time Stopped:: 13:05
--- NOTE | 2022-08-17 14:47 | BH.MTP_ITS ---
Treatment Plan Review Date of Admission:: 07/28/22 Date of Treatment Plan Review:: 08/17/22 Admitting Diagnoses:: Major depressive disorder, recurrent, severe without psychosis F33.2; Generalized anxiety disorder Current Diagnoses:: Major depressive disorder, recurrent, severe without psychosis F33.2; Generalized anxiety disorder Patient's Response to Treatment:: Pt has responded well to treatment AEB pt consistently attending IOP sessions and reduction of overall symptoms on the DSM-5 by 17% since admission. Pt contributes well during individual sessions and she is becoming more engaged during group sessions. Pt applies coping skills outside of IOP and reports overall mood is improved. Pt is consistent with her goals and reports improving functioning at home and increased social functioning. Status of Current Problems and Symptoms: Pt continues to report symptoms of depressive and anxiety, but her symptoms are decreasing. Pt's biggest stressors right now are there's so much unknown with pt's job and her boyfriend's residency placement. Pt also reports not knowing much about herself including her values and interests which reinforces depression. Pt also needs outpatient counseling, but pt is receptive to exploring providers. Problem #1 Problem Name:: hopelessness, worthlessness, negative self-talk, and fleeting SI Status of Goals:: Objective 1- in progress. Pt?s DSM-5 scores for depression reduced by 14% since admission and SI decreased by 33%. Pt reports improved energy and functioning, but her scores are still showing she experiences dep ressive symptoms more than half the days. Objective 2- in progress. Pt has gained awareness of cognitive distortions as well as self-compassion. Pt can identify distorted thought patterns and she is working on giving herself more credit. Team Recommendations:: Treatment tx encourages pt to continue working on this tx goal as pt has made progress, but she can continue to reduce intensity of depressive symptoms. Pt also can benefit from challenging distortions and giving herself credit more consistently. Pt is also working on increasing self- awareness to better understand her values and interests. Problem #2 Problem Name:: anxiety, avoidance, and rumination Status of Goals:: Objective 1-in progress. Pt?s DSM-5 scores for anxiety have decreased by 18% since admission. Pt reports feeling slightly more anxiety now that her depression is resolving. Pt reports using imagery and progressive muscle relaxation. Objective 2- in progress. Pt reports increased awareness of distortions and pt had done well to combat distortions with therapist. Pt working on staying in the moment and looking at the evidence when anxious. Team Recommendations:: Treatment team encourages pt to continue working on incorporating calming skills as well as communicating assertively to reduce anxiety and ruminations. Pt is also encouraged to identify boundaries and coping skills for return to work.
--- NOTE | 2022-08-18 09:05 | BH.SGPN.GN ---
Behaviors/Verbalizations/Mental Status: []Eye contact good, casually dressed, motor activity appropriate, speech normal rate and tone, mood euthymic and anxious, congruent affect, thoughts linear and intact, no evidence of delusions or hallucinations. Reviewed pt's symptom tracker, pt denies suicidal ideation, plan, or intent as of this date. Future oriented. Client Response/Progress/Benefit: []Pt responded well to session, attentive and willing to process with group. Pt reports feeling empowered this morning. Pt did well to identify wins, which included taking time to reflect on her common thought patters, and identify and replace any distortions that arise. Reports this has been helpful in aiding her in beginning to have a more hopeful perspective as well as see areas of her life that are in her control. Additional win noted as sharing about what she has learned and been working on in treatment with her boyfriend. Identified that was anxiety provoking but ultimately an empowering and beneficial experience as he was receptive and supportive. Progress noted in increased use of anxiety management skills and thought challenging. Recommended continued IOP tx to continue to improve consistent use of healthy emotion regulation skills, continue to gain insight into her goals for her future, as well as prevent decompensation. Narrative Note: []
--- NOTE | 2022-08-18 10:10 | BH.SGPN.GN ---
Behaviors/Verbalizations/Mental Status: [] Eye contact is good. Motor activity is appropriate. Appearance is casual. Speech is Appropriate. Mood is anxious. Affect is congruent. Thoughts are linear and logical. No evidence of psychosis. Client Response/Progress/Benefit: [] Pt was an active participant in group discussion and experiential activity. Attentive during psychoeducation on difference between internal and external coping skills. Therapist discussed possible causes to developing and maintain unhealthy coping skills which can impact mental health. Pt participated in interactive discussion identifying common unhealthy which included; overworking, self-harming, substance use, over-sleeping, over-eating, excessive exercise, social media scrolling, isolation, etc. Able to make connections between experiential activity (folder towers) and importance of having a solid base of internal and external coping skills. Benefited from increased awareness of internal and external coping skills and identifying unhealthy coping skills. Will continue in IOP to maintain safety, prevent decompensation, and improve functioning to return to work. Narrative Note: []
--- NOTE | 2022-08-18 11:15 | BH.SGPN.GN ---
Behaviors/Verbalizations/Mental Status: []Pt alert and oriented, neatly dressed and groomed. Eye contact good. Motor activity appropriate. Speech within normal limits. Affect congruent, mood euthymic. Thoughts linear, logical, no signs of hallucinations or delusions. Client Response/Progress/Benefit: []Pt responded well to session, taking notes and contributing. Group discussed the different categories of coping skills which included distraction, emotional release, grounding, self-love, and thought challenging.? Pt participated in creating a coping skills ?menu? from the five categories of coping skills. Pt's coping skill menu included: reading, activating her senses, journaling, and practicing self-awareness of her distortions and values. Pt reported some of these skills are new and others are skills pt wants to use more often. Appeared to benefit from increasing repertoire of healthy coping skills. Will continue tx to continue using healthy coping skills, decrease negative self-talk, and further improve daily functioning. Narrative Note: []
--- NOTE | 2022-08-23 09:00 | BH.SGPN.GN ---
Behaviors/Verbalizations/Mental Status: []Pt alert and oriented, neatly dressed and groomed. Eye contact good. Motor activity appropriate. Speech within normal limits. Affect congruent, mood anxious. Thoughts linear, logical, no signs of hallucinations or delusions. Reviewed pt?s symptom tracker, no risk for suicidal ideation, plan, or intent as of 08/23/22 Client Response/Progress/Benefit: []Pt responded well to session, attentive and providing supportive statements. Pt reports feeling stressed this morning due to ongoing uncertainties with her boyfriend's residency placement. However, pt shared she had a conversation that she had been avoiding with her boyfriend over the weekend and it went well. Pt reports feeling proud of herself for being assertive and stated her boyfriend was happy that pt was direct. Pt also was highly active this weekend and she feels like her energy is improving. Pt appeared to benefit from group feedback on how to balance planning but also being present. Pt will continue IOP tx to promote mood stability, further reduce anxiety and rumination, and increase self-confidence. Narrative Note: []
--- NOTE | 2022-08-23 10:12 | BH.SGPN.GN ---
Behaviors/Verbalizations/Mental Status: []Pt alert and oriented, casually dressed and groomed. Eye contact good. Motor activity appropriate. Speech within normal limits. Affect congruent, mood anxious and euthymic. Thoughts linear, logical, no signs of hallucinations or delusions. Client Response/Progress/Benefit: [] Pt participated in group discussion. Group worked together to identify benefits of healthy relationships which included improves mental health, encouragement, increased resilience, reduced stress, connection, someone to celebrate with, and support during challenges. Group identified factors that lead to unhealthy relationships which included trauma, lack of communication, difference in values, and lack of trust. Pt shared connecting with lack of communication and fear of pain or rejection as challenges to relationships. Did well to provide encouragement as well as ask questions and contribute ideas during the activity. Benefited from increased insight and awareness of benefits of healthy relationships and factors that contribute to unhealthy relationships. Will continue in IOP to continue to encourage healthy communication with supports, improve consistent thought challenging, and prevent decompensation. ? Narrative Note: []
--- NOTE | 2022-08-23 11:10 | BH.SGPN.GN ---
Behaviors/Verbalizations/Mental Status: [] Client alert and oriented, casually dressed and groomed. Eye contact good. Motor activity appropriate. Speech within normal limits. Affect congruent, mood euthymic. Thoughts linear, logical, no signs of hallucinations or delusions. Client Response/Progress/Benefit: [] Client responded well to session, engaged and taking notes. Worked with group to identify characteristics of healthy and unhealthy relationships. Attentive during psychoeducation about characteristics of healthy, unhealthy, and abusive relationships. Client stated within relationships she does well is being respectful. Client reported an area she would like to improve on is being more communicative. Client stated she first wants to work on improve her self-value which can help build confidence to be more assertive with thoughts and feelings. Reported she also tends to have difficulty trusting others due to past relationships. Appeared to benefit from identifying area wants to work on to build healthier relationships. Pt is to continue IOP to increase healthy coping, build confidence, and prevent decompensation.
== END 2022-08-23 23:59 ==
LOC: BHIOP 08:00
PROVIDERS: Referring Provider Psychiatry & Neurology Psychiatry; Visit Provider Psychiatry & Neurology Psychiatry
DX: F33.2 Major depressive disorder, recurrent severe without psychotic features (principal); F41.1 Generalized anxiety disorder; Z79.899 Other long term (current) drug therapy
CPT/HCPCS: S9480; 90832; 90834; 90837; 90853

== ENCOUNTER 2022-08-24 07:07 | Outpatient (RCR) | payer SELFPAY ==
[2022-08-24 00:33] VITALS: BP 126/88; PULSE 62
--- NOTE | 2022-08-25 09:00 | BH.SGPN.GN ---
Behaviors/Verbalizations/Mental Status: [] Eye contact is good. Motor activity is appropriate. Appearance is casual. Speech is Appropriate. Mood is anxious and depressed. Affect is congruent. Thoughts are linear and logical. No evidence of psychosis. Reviewed daily check in sheet and reports a 1/5 for suicidal thoughts and a 1/5 for suicidal intention. This is client's baseline. Client Response/Progress/Benefit: [] Pt was an active participant in group discussion. Attentive. Daily symptom tracker noted 3/5 for depression and anxiety and a 1/5 for agitation. Client reported her energy has taken a dip recently and her sleep has been hit or miss. Client reported in the past she would have been negative and not tried anything. Client noted a positive as being open minded to take medications for sleep and mood as well as purchasing a light that is supposed to help improve energy. Client reported additional positive as getting up early this morning to have a counseling appointment prior to group. Client stated stressor as her insurance company not covering many of her mental health treatments/medications due to her not going to [facility]. Client stated she has been trying to advocate for herself and hasn't given up. Group was supportive and provided encouragement which was beneficial. Will continue in IOP to continue use of healthy coping, improve ability to set realistic expectations, and prevent decompensation.
--- NOTE | 2022-08-25 09:17 | BH.MDN ---
Multi-Disciplinary Note - Note 45-min Individual Time Started:: 08:30 Date: 08/25/22 Purpose of session/treatment goals addressed:: To work on goal #2 of pt's tx plan and to discuss aftercare options. Eye Contact:: Good Motor Activity:: Appropriate Appearance:: Neat Speech:: Appropriate Mood:: Euthymic, Anxious Affect:: Congruent Thoughts:: Linear, Logical, No evidence of hallucinations/delusions noted Staff Interventions:: thought challenging, psychoeducation on: - Cherry mind, discharge planning, strengths perspective, taught coping skills Client Response:: Pt responded well to session, open to meeting with therapist. Pt reported that she accomplished her homework from last session and it went well. Pt feels better about the unknowns with her boyfriend's residency placement after communicating with him. Pt shared she is feeling more empowered because she is advocating for herself and expressing her needs. Pt stated is still not feeling at her baseline, but her functioning has been consistently much better than it was six weeks ago. Pt wants to extend her time in IOP as pt originally only planned to do 15 sessions. Pt feels she can benefit from adding a few more sessions to help pt process upcoming stressors and changes. Therapist and pt also discussed aftercare options and recommendations for outpatient counseling. Risks/Concerns:: Pt denies any active suicidal ideations, plan, or intent as of 08/25/22. Pt's thoughts of have significantly decreased since admission. Progress Toward Goals/Plan:: Pt continues to make progress towards her tx goals AEB her self-report of improved functioning and improving ability to challenge negative thinking patterns. Pt has much less stigma about mental health which has allowed acceptance for pt. Pt continues to report not being at her baseline for mood, but it is improving. Pt receptive to list of outpatient providers give to pt for aftercare options. Pt also is interested in the IOP aftercare program. Pt will continue IOP tx to promote gains, further improve mood stability, and further reduce negative thinking patterns. Time Stopped:: 09:05
--- NOTE | 2022-08-25 10:10 | BH.SGPN.GN ---
Behaviors/Verbalizations/Mental Status: [] Eye contact is good. Motor activity is appropriate. Appearance is casual. Speech is Appropriate. Mood is euthymic. Affect is full. Thoughts are linear and logical. No evidence of psychosis. Client Response/Progress/Benefit: [] Pt was an active participant in group discussions. Attentive. Pt participated during interactive discussion on Problem-Solving. Along with peers provided insight on the definition of problem, the importance of problem-solving in one's mental wellness, and consequences of avoiding problems. Attentive AEB by note-taking and asking questions during education on Problem-Solving in the Moment protocol (Ask what the problem is, Brainstorm solutions, choose a solution, Do it, Evaluate). Active and engaged during experiential activity in which pt and peers practiced problem solving strategies. Benefited from increased insight on problem-solving strategies and the benefit of solid problem solving skills on one's mental health. Will continue in IOP to maintain safety, increase healthy coping, and to improve functioning to return to work. Narrative Note: []
--- NOTE | 2022-08-25 11:05 | BH.SGPN.GN ---
Behaviors/Verbalizations/Mental Status: []Pt alert and oriented, neat and casual dress, hygiene tended to. Eye contact good. Motor activity WNL. Speech appropriate rate and tone. Affect congruent, mood anxious and euthymic.? Thoughts linear, logical, no signs of hallucinations or delusions. Client Response/Progress/Benefit: []Pt engaged in session as evidenced by pt listening to others and providing input throughout. Pt completed problem solving example with group and identified a goal they want to work on. Goal identified as: improving her self-acceptance and confidence levels. Pt?s barriers included: negative thinking, self-doubt, low motivation, and fear of failure. Pt also identified steps she could take such as creating and reading daily affirmations, keeping an accomplishment log, and values exploration to find new hobbies and interests. Pt seemed to benefit from learning about problem solving method and rehearsing problem-solving skills in the moment. Pt will continue IOP tx to promote mood stability, improve confidence in self and healthy communication with supports, and further reduce negative thinking. Narrative Note: []
--- NOTE | 2022-08-26 09:05 | BH.SGPN.GN ---
Behaviors/Verbalizations/Mental Status: [] Eye contact is good. Motor activity is appropriate. Appearance is casual. Speech is Appropriate. Mood is anxious. Affect is congruent. Thoughts are linear and logical. No evidence of psychosis. Reviewed daily check in sheet and no reports of suicidal ideations or intent. Client Response/Progress/Benefit: [] Pt was an active participant in group discussions. Attentive. Daily symptom tracker notes 2/5 for depression and anxiety. Provided appropriate feedback. Mental health win was that she is continuing to increase her awareness of her cognitive distortions and how they impacted her thoughts and mood in the past. Learning skills to reframe and challenge these thoughts. Shared anxiety and stress related to recent trigger of having her employer reach out to her regarding returning to work. Feels pressure to respond to employer and have the answer however she currently is unsure. Group normalized not having an answer about returning to work as this is big decision. Currently working on career decisions as well as housing decisions (live with BF or family). Reports feeling confused. Benefited from group support, encouragement, and feedback. Will continue in IOP to maintain safety, stabilize mood, and improve functioning to return to work. Narrative Note: []
--- NOTE | 2022-08-26 10:20 | BH.SGPN.GN ---
Behaviors/Verbalizations/Mental Status: []Client alert and oriented, casually dressed and groomed. Eye contact good. Motor activity appropriate. Speech within normal limits. Affect congruent, mood euthymic. Thoughts linear, logical, no signs of hallucinations or delusions. Client Response/Progress/Benefit: []Client receptive to session AEB contributing to discussion, as well listening attentively to others, and taking notes. Worked with group to brainstorm the positive and negative aspects of stress on physical and mental health. Group did well to identify the benefits of stress as well as the impact of distress on performance, relationships, and mental health. Client identified their personal top stressors as: societal pressure to be doing more in life, anxiety about where her boyfriend will go for residency, and desire to learn and love herself. Client reports when the stress overflows client reacts with overcompensating, overworking, and overload her schedule. Client seemed to benefit from increased awareness of current stressors and impact stress has on mental health. Recommended to continue IOP tx to continue to promote healthy coping, challenge distorted thoughts, and prevent decompensation.
--- NOTE | 2022-08-26 11:15 | BH.SGPN.GN ---
Behaviors/Verbalizations/Mental Status: []Pt alert and oriented, neatly dressed and groomed. Eye contact good. Motor activity appropriate. Speech within normal limits. Affect full, mood euthymic. Thoughts linear, logical, no signs of hallucinations or delusions. Client Response/Progress/Benefit: []?Pt engaged participant AEB listening attentively to others and contributing to discussion. Attentive during psychoeducation on the 4 A's of Coping with Stress (Avoid, Alter, Adapt, Accept). Participated in experiential activity in which group members had to utilize stress management skills in the moment. Pt was encouraging others and providing direction to group. Pt engaged in review of the 4 A?s and picked wanting to work on accepting the things that are out of her control and that there are positives in any situation. Benefited from processing in the moment stress management strategies and identifying new ways to cope with stress. Will continue in IOP tx to promote mood stability, increase self-confidence, and improve anxiety management skills. Narrative Note: []
--- NOTE | 2022-08-30 09:05 | BH.SGPN.GN ---
Behaviors/Verbalizations/Mental Status: [] Eye contact is good. Motor activity is appropriate. Appearance is casual. Speech is Appropriate. Mood is euthymic. Affect is full. Thoughts are linear and logical. No evidence of psychosis. Reviewed daily check in sheet and pt reports 1/5 for suicidal thoughts and 0/5 for intent. Client Response/Progress/Benefit: [] Pt was an active participant in group discussion. Attentive. Provided appropriate feedback. Daily symptom tracker notes 2/5 for depression/anxiety. Emotion for today is encouraged. Mental health win is that she spoke with her employer regarding her FMLA and return to work. Shared that she was anxious before the conversation b/c she remains unsure regarding her plans to return to work. I'm still trying to figure everything out myself. She mentions benefits and negative to her current position. Has an emotional attachment to the places and people, however remains unsure if she will return. Believes that the conversation went well and her employer was supportive and direct which she appreciated. She shared that she has returned to certain social self-care strategies that were beneficial in the past and seeing benefits. I'm exploring and learning about myself. She has several life decisions regarding job, housing, and relationship which she is working through and while her mental health is improving she wants to be more stable before making these important decisions. Benefited from group support, encouragement, and feedback. Will continue in IOP to maintain safety, prevent decompensation, and to stabilize mood. Narrative Note: []
--- NOTE | 2022-08-30 10:15 | BH.SGPN.GN ---
Behaviors/Verbalizations/Mental Status: []Pt alert and oriented, neatly dressed and groomed. Eye contact good. Motor activity appropriate. Speech within normal limits. Affect congruent, mood euthymic. Thoughts linear, logical, no signs of hallucinations or delusions. Client Response/Progress/Benefit: []Pt was an active participant during interactive group discussions. Attentive during psychoeducation on the six types of boundaries. Pt along with peers contributed to interactive discussion on defining what a boundary is and group identified challenges to setting boundaries which included; lack of confidence, lack of self-worth, fear of losing friends, and guilt. Group identified the benefits to setting boundaries and pt identified personal benefits of feeling empowered and building confidence. Pt benefited from increased awareness and insight on the importance/benefit to setting health boundaries. Will continue in IOP to reinforce healthy coping skills, reduce negative thinking patterns, and further improve daily functioning. ? Narrative Note: []
--- NOTE | 2022-08-30 11:10 | BH.SGPN.GN ---
Behaviors/Verbalizations/Mental Status: []Client alert and oriented, casually dressed and groomed. Eye contact good. Motor activity appropriate. Speech within normal limits. Affect constricted, mood euthymic. Thoughts linear, logical, no signs of hallucinations or delusions. Client Response/Progress/Benefit: []Pt responded well to session AEB listening attentively to peers and providing input. Pt attentive during psychoeducation on the different boundary styles. Pt reported she struggles with saying no, difficulty asking for help, and difficulty stepping away from relationships that take more than they give. Pt stated she realizes not setting boundaries has led her to be overwhelmed and eventually leads to her shutting down. Pt was given a handout on strategies for healthy boundary setting. Appeared to benefit from increasing insight to boundary setting and the impacts on mental health. Seemed to benefit from increased awareness of boundary styles and strategies to improve setting boundaries. Will continue IOP tx to increase healthy coping, challenge distortions, and prevent decompensation.
--- NOTE | 2022-08-30 14:27 | BH.MDN_ITS ---
Multi-Disciplinary Note - Note 45-min Individual Time Started:: 12:20 Date: 08/30/22 Purpose of session/treatment goals addressed:: To work on goal #1 of pt's treatment plan using self-compassion techniques. Eye Contact:: Good Motor Activity:: Appropriate Appearance:: Neat Speech:: Appropriate Mood:: Euthymic, Anxious Affect:: Full Thoughts:: Linear, Logical, No evidence of hallucinations/delusions noted Staff Interventions:: thought challenging, psychoeducation on: - self- compassion, CBT techniques, strengths perspective, goal setting, other - gave pt a maintenance plan to begin working on Client Response:: Pt responded well to session, open to meeting with therapist. Pt reports her mood has been improved within the last week. Pt stated she has noticed improved functioning as early as her second week in IOP, but this week is the first she ahs noticed elevated mood. Pt reports utilizing a lot of coping skills outside IOP including communicating with supports, thought challenging, self-care, and self-compassion. Pt had a good conversation with her boss yesterday which reduced a lot of stress regarding return to work. Pt also feels more confident about the unknowns in her life. Pt receptive to working on self-compassion today and pt learned about the three components of self- compassion: self-kindness vs self-judgement, common human experience vs isolation, and mindfulness vs over-identification. Pt came up with personal examples for each and was able to identify how to increase self-compassion. Pt shared the cognitive distortions group really opened my eyes and has helped pt catch negative thoughts. Pt receptive to working on a maintenance plan for homework and was able to ask questions about the maintenance plan. Risks/Concerns:: Pt denies any suicidal ideations, plan, or intent as of 08/30/22. Progress Toward Goals/Plan:: Pt continues to make progress towards her tx goals AEB her self-report of improved functioning and improved mood within the last week. Pt reports belief that she is beginning to experience rayshawn again and notice a more positive perspective. Pt continues to report anxiety and not being at her baseline for mood, but it is improving. Pt receptive to working on a maintenance plan on her own. Pt will continue IOP tx to promote gains, further combat negative thinking patterns, and improve self-esteem. Time Stopped:: 13:00
--- NOTE | 2022-09-01 09:05 | BH.SGPN.GN ---
Behaviors/Verbalizations/Mental Status: [] Eye contact is good. Motor activity is appropriate. Appearance is casual. Speech is Appropriate. Mood is euthymic. Affect is full. Thoughts are linear and logical. No evidence of psychosis. Reviewed daily check in sheet and pt reports 1/5 for suicidal ideations and 0/5 for intent. Client Response/Progress/Benefit: [] Pt was an active participant in group discussion. Attentive. Provided appropriate feedback. Daily symptom tracker notes 2/5 for depression and anxiety. Emotion for today is present. Shared that she feels more present in the moment. Increased confidence in her ability to manage emotions, stress, and decision-making which have been significant struggles for her in recent months. Ruminating less and able to use skills to reframe. Shared recent examples. Concerns about discharging from IOP and what the future holds. Had been avoiding setting up aftercare (therapist) however made an appointment. Benefited from group support, encouragment, and feedback. Will continue in IOP to prevent decompensation, stabilize mood, and increase healthy coping. Narrative Note: []
--- NOTE | 2022-09-01 10:10 | BH.SGPN.GN ---
Behaviors/Verbalizations/Mental Status: []Client alert and oriented, casually dressed and groomed. Eye contact fair. Motor activity appropriate. Speech within normal limits. Affect congruent, mood euthymic. Thoughts linear, logical, no signs of hallucinations or delusions. Client Response/Progress/Benefit: []Client was an active participant in group discussions and activity. Attentive during psychoeducation. Client along with peers were able to identify several negatives on the picture given to the group. Client and peers also identified positives in the picture and made the connection that finding positives is much more difficult. Interactive discussion on the definition of perspective, how perspective is formed, and why perspective is important in treatment. Client along with peers also identified that perspective can either motivate and encourage treatment or be a barrier to receiving help. Client shared she is trying to adopt a more hopeful/positive perspective currently but struggles at times with intrusive anxious thoughts. Shared a hopeful perspective would aid in improving her communication and connection with supports. Recognizes when her perspective is negative she tends to isolate and withdraw from others. Will continue in IOP to stabilize moods, increase consistent use of healthy coping, and prevent decompensation. Narrative Note: []
--- NOTE | 2022-09-01 11:10 | BH.SGPN.GN ---
Behaviors/Verbalizations/Mental Status: []Pt alert and oriented, casually dressed and groomed. Eye contact good. Motor activity appropriate. Speech within normal limits. Affect congruent, mood anxious and euthymic. Thoughts linear, logical, no signs of hallucinations or delusions. Client Response/Progress/Benefit: []Pt was attentive and contributed to small group discussion. Pt completed strengths exploration worksheet. Pt able to acknowledge how these strengths are helping pt and can continue to help pt in mental health journey. Reflected on how pt?s curiosity, persistence, and cooperation have helped pt in the past and continue to help pt with mental health. Pt worked with group to identify strategies that can help increase utilization of personal strengths and how to challenge one?s perspective in general. Benefited from identifying personal strengths and strategies for enhancing use of identified strengths. Pt to continue IOP tx to improve daily functioning, increase healthy coping, and reduce negative thinking patterns. Narrative Note: []
--- NOTE | 2022-09-05 09:05 | BH.SGPN.GN ---
Behaviors/Verbalizations/Mental Status: []Eye contact fair to good, casually dressed, motor activity appropriate, speech normal rate and tone, mood dysthymic and anxious, congruent affect, thoughts linear and intact, no evidence of delusions or hallucinations. Reviewed pt's symptom tracker, pt suicidal ideation reported within baseline, denies plan, or intent as of this date. Future oriented. Client Response/Progress/Benefit: [] Pt responded well to session, attentive and willing to process with group. Pt reported ?this was a rough weekend? however still did well to identify wins, which included successfully managing a panic attack when going up to her house in [place]. Shared this was the first time doing so alone since temporarily moving back in with her parents to work on her mental health. Identified struggling at first to give herself credit for use of skills as she viewed the panic as a setback; however did well to challenge this. Additional win noted as completing several tasks on her ?to-do? list prior to leaving for [place] for the week. Noted stressor as additional tasks she needs to accomplish prior to leaving. Appeared to benefit from supportive feedback and encouragement provided by the group. Progress noted in continued reports of improved anxiety management, thought challenging, and ongoing skill application. Recommended continued IOP tx to promote consistent use of healthy skills, encourage continued self-advocacy, as well as prevent decompensation. Narrative Note: []
--- NOTE | 2022-09-05 10:10 | BH.SGPN.GN ---
Behaviors/Verbalizations/Mental Status: [] Eye contact is good. Motor activity is appropriate. Appearance is casual. Speech is Appropriate. Mood is anxious. Affect is congruent. Thoughts are linear and logical. No evidence of psychosis. Client Response/Progress/Benefit: [] Pt was an active participant in group discussions. Attentive during psychoeducation and participated in experiential activity. Participated during interactive discussion on how emotions can negatively impact how we communicate. Pt along with peers identified that intense emotions can impact one's ability to focus, cause one to shut down, lead to word vomit, cause cognitive distortions (Catastrophizing, Minimizing, mind-reading), and can impact one's ability to comprehend. Pt participated during interactive discussion on the importance of communicating one's emotions to others which can prevent blow-ups, help one get their needs met, help others better understand our emotions/concerns/stressors, can build trust with others, and can help us advocate for ourselves. Able to identify and elaborate on the connections between experiential activity and group topic. Benefited from increased awareness of how emotions can impact communication. Will continue in IOP to maintain safety, prevent decompensation, and increase healthy coping skills. Narrative Note: []
--- NOTE | 2022-09-05 11:15 | BH.SGPN.GN ---
Behaviors/Verbalizations/Mental Status: []Pt alert and oriented, neatly dressed and groomed. Eye contact good. Motor activity appropriate. Speech within normal limits. Affect congruent, mood anxious. Thoughts linear, logical, no signs of hallucinations or delusions. Client Response/Progress/Benefit: []Pt engaged in session AEB pt listening attentively to peers and providing input. Attentive during psychoeducation on 4 zones of regulation. Pt able to identify feelings and behaviors for each zone.? Pt identified coping skills one can use to support self in each zone. Pt stated belief that she is in the yellow zone today as pt is stressed about preparing for her vacation tomorrow. Pt reports sitting with the uncomfortable and thought challenging will help pt today. Benefited from increased education on zones of regulation or stages of alertness for emotions and healthy coping skills to use for each zone. Pt will continue IOP tx to promote mood stability, increase self-confidence, and reinforce emotional regulation skills. Narrative Note: []
--- NOTE | 2022-09-21 09:03 | BH.SGPN.GN ---
Behaviors/Verbalizations/Mental Status: []Pt alert and oriented, neatly dressed and groomed. Eye contact good. Motor activity appropriate. Speech within normal limits. Affect congruent, mood euthymic. Thoughts linear, logical, no signs of hallucinations or delusions. Reviewed pt?s symptom tracker, no risk for suicidal ideation, plan, or intent as of 09/21/22 Client Response/Progress/Benefit: []Pt responded well to session, attentive and engaged. Pt reports feeling grateful this morning, but she is struggling with getting back to reality after vacation. Pt shared her boyfriend found out he will be doing his residency in [place] which is relieving for pt. Pt also reports finding rayshawn in her ability to feel a lot more emotions and feel able to cope with these emotions. Pt shared she has been working on being more accepting of her emotions using self-compassion. Pt's stressor today is that she is adjusting to being back home and is stressed about the future. Pt appeared to benefit from reflecting on her application of coping skills. Pt will continue IOP tx to promote mood stability and further increase self-confidence. Narrative Note: []
--- NOTE | 2022-09-21 10:05 | BH.SGPN.GN ---
Behaviors/Verbalizations/Mental Status: []Client alert and oriented, casually dressed and groomed. Eye contact good. Motor activity appropriate. Speech normal. Affect congruent, mood euthymic. Thoughts linear, logical, no signs of hallucinations or delusions. Client Response/Progress/Benefit: []Client's receptive of session, remained an actively engaged participant, AEB client listening and taking notes throughout, as well as participated in small group discussion. Attentive during psychoeducation on communication styles, providing a personal example of passive-aggressive communication. Assisted group with identifying barriers of effective communication which included: assuming, shutting down, dominating the conversation, and using text to communicate. Identified a personal barrier as assuming someone else feels the same way that you do. Benefited from increased awareness of different communication barriers, styles, and the importance of communicating effectively to improve mental wellness. Will continue IOP tx to continue to improve overall functioning, promote mood stability, and prevent decompensation. Narrative Note: []
--- NOTE | 2022-09-21 12:03 | PCM.BH.PN ---
Progress Note Progress Note: And history of Present Illness/Interim History: The patient is a 27-year-old single female with a history of depression and anxiety who is seen in follow-up at the [facility] behavioral health IOP program. I last saw the patient over 1 month ago and at that time the only medication change made was to add Vistaril 25 mg for sleep. The patient feels this has helped her sleep better. She was also receiving 9 IV ketamine treatments and feels that she is now done with the ketamine and her insurance will not pay for intranasal ketamine so her outpatient doctor has increased her Prozac dose in recent weeks. The patient feels she is learning valuable skills in the program such as recognizing cognitive distortions and feels she is much less depressed than when she started the program. She has been seeing her outpatient psychiatrist quite frequently during the program as she did not want me to make any significant medication changes. The staff has noted progress by the patient also. She states that now she has extremely rare passive thoughts of . Much less than before. She denies any suicidal ideation whatsoever now. She denies any plan for suicide. She denies any thoughts of self-harm. She denies homicidal ideation, hallucinations, delusions, faina, or hopelessness. Current Psychiatric Medications: [] Prozac 50 mg p.o. daily now (on this dose for 3 or 4 weeks); Vistaril 25 mg p.o. nightly as needed for sleep. B12 was added by her outpatient doctor also. Mental Status Examination: [] The patient is a 27-year-old female who appears normal for stated age and is casually dressed and groomed with good hygiene. She is ambulatory with a normal gait and has no psychomotor agitation or retardation. Eye contact is good and speech is quiet but fluent with normal rate and rhythm and no pressure. Mood is mildly depressed. Affect is constricted but much brighter. Thought process is goal-directed and organized. Thought content: Patient enjoyed a visit to [place] recently. She is optimistic about being able to learn to deal with her cognitive distortions. There is evidence of rare passive thoughts of . There is no evidence of suicidal ideation, plan for suicide, homicidal ideation, hallucinations or delusions. Reality testing is intact. Impulsivity is moderate. Judgment is intact. Intelligence is above average. Insight is good. Diagnoses: [] 1. Major depressive disorder, recurrent, severe without psychosis (improving) 2. Generalized anxiety disorder 3. Primary support, work issues Plan: [] The patient will continue the IOP program at [facility] as the structure, support, education and group therapy will hopefully prevent worsening of the patient's symptoms that could require hospitalization. The patient felt safe during the interview and if it anytime she does not feel safe she will let us know or go to the emergency room. No medication changes were made today. The patient will continue to follow-up with her outpatient providers and I will see the patient in follow-up while she is in the IOP program. The patient may be discharged from the program next week if she continues to make progress.
--- NOTE | 2022-09-21 12:18 | BH.MDN ---
Multi-Disciplinary Note - Note 45-min Individual Time Started:: 11:15 Date: 09/21/22 Purpose of session/treatment goals addressed:: To work on pt's maintenance plan and to process current stressors and positives. Eye Contact:: Good Motor Activity:: Appropriate Appearance:: Neat Speech:: Appropriate Mood:: Anxious Affect:: Congruent Thoughts:: Linear, Logical, No evidence of hallucinations/delusions noted Staff Interventions:: thought challenging, CBT techniques, discharge planning, strengths perspective, goal setting, taught coping skills Client Response:: Pt responded well to session, open to meeting with therapist. Pt shared her vacation went really well and she and her boyfriend received good news about his residency. Pt stated she feels grateful, but also stressed coming back to reality. Pt still feels like she is easily overwhelmed by tasks, but pt has much more energy than a month ago. Pt stated she was able to practice a lot of self-care over the past two weeks. Pt receptive to working on her maintenance plan for depression. Pt identified triggers such as: fear of failure, fear of disappointing others, loss, change, and allen days. Pt also identified warning signs such as: isolation, overcompensating at work, negative thinking, lack of energy, not working out, and canceling plans. Pt identified numerous coping skills that are currently helping pt and will help pt in the future. These skills included: opposite action, positive self-talk, keeping a routine, daily check-ins, and ongoing goal setting. Pt also processed her anxious thoughts about work and her future which pt reported benefitting from. Risks/Concerns:: Pt reports very rare passive thoughts of occur still. Pt denies any suicidal ideations. Progress Toward Goals/Plan:: Pt continues to make progress towards her tx goals AEB pt's significant reduction of SI and depressive symptoms since admission. Pt also has been able to better manage stressor and anxiety. Pt continues to have stress about upcoming changes, but pt feels she is managing better. Pt does still report her motivation is not at her baseline and she is still a worrier by nature. Pt plans to discharge from IOP tx next week and pt starts with her outpatient therapist tomorrow. Pt can benefit from two more IOP days to reinforce healthy coping skills and further reduce ruminations. Time Stopped:: 12:00
--- NOTE | 2022-09-22 09:02 | BH.SGPN.GN ---
Behaviors/Verbalizations/Mental Status: []Eye contact is good. Motor activity is appropriate. Appearance is casual. Speech is Appropriate. Mood is euthymic. Affect is full. Thoughts are linear and logical. No evidence of psychosis. Reviewed daily check in sheet and no reports of suicidal ideations or intent. Client Response/Progress/Benefit: []Client responded well to session AEB listening attentively to others and sharing thoughts and feelings. Client reported mental health positive as going out to dinner with her friends and being able to enjoy herself. Stated her anxiety was manageable throughout dinner and she was able to stay present. Client stated additional positive as starting to note positives in her life since having to take care of her mental health. Client reported a couple weeks ago she wouldn't have been able to see any positives of her struggles. Client stated continued stressor as not knowing what she wants to do with her career. Seemed to benefit from support from peers. Client to continue IOP to maintain gains, challenge distortions, and prevent decompensation. Narrative Note: []
--- NOTE | 2022-09-22 10:10 | BH.SGPN.GN ---
Behaviors/Verbalizations/Mental Status: [] Eye contact is good. Motor activity is appropriate. Appearance is casual. Speech is Appropriate. Mood is euthymic. Affect is full. Thoughts are linear and logical. No evidence of psychosis. Client Response/Progress/Benefit: [] Pt was an active participant in group discussions. Attentive during psychoeducation. Engaged and provided feedback along with peers on defining anxiety. Along with peers worked together to identify the benefits of anxiety which included; motivates us, helps us prepare, helps us change and grow, helps us identify danger and can keep us safe. Participated during interactive discussion on how anxiety impacts one physically (increased heart rate, sweaty hands, etc), cognitively (poor concentration, fogginess, catastrophizing, etc), and behaviorally (avoidance, anger, safety behaviors, etc). Completed worksheet on how anxiety impacts her physically, cognitively, and behaviorally. Benefited from increase insight into anxiety's benefits and detriments. Will continue in IOP to maintain gains and improve functioning. Narrative Note: []
--- NOTE | 2022-09-22 11:15 | BH.SGPN.GN ---
Behaviors/Verbalizations/Mental Status: []Pt alert and oriented, casually dressed and groomed. Eye contact good. Motor activity appropriate. Speech within normal limits. Affect congruent, mood euthymic. Thoughts linear, logical, no signs of hallucinations or delusions. Client Response/Progress/Benefit: []Pt was an active participant in group discussion AEB providing contributions throughout group and listening attentively to others. Attentive during psychoeducation on mindfulness and ways to utilize mindfulness techniques to improve anxiety management. The group practiced guided meditation during session. Engaged and attentive during group brainstorm of healthy anxiety reduction skills. Appeared to benefit from practicing in the moment coping skills and increasing repertoire of anxiety management skills. Pt selected wanting to work on using skills of playing mind-games/the alphabet game and stretching more consistently. Pt will continue IOP tx to promote continued use of healthy coping skills, further improve self-compassion, and prevent decompensation. Narrative Note: []
== END 2022-09-23 23:59 ==
LOC: BHIOP 07:07
PROVIDERS: Referring Provider Psychiatry & Neurology Psychiatry; Visit Provider Psychiatry & Neurology Psychiatry
DX: F33.2 Major depressive disorder, recurrent severe without psychotic features (principal); F41.1 Generalized anxiety disorder; Z79.899 Other long term (current) drug therapy
CPT/HCPCS: S9480; 90834; 90853

== ENCOUNTER 2022-09-26 08:14 | Outpatient (RCR) | payer SELFPAY ==
[2022-09-24 01:56] VITALS: BP 126/88; PULSE 62
--- NOTE | 2022-09-27 09:05 | BH.SGPN.GN ---
Behaviors/Verbalizations/Mental Status: [] Eye contact is good. Motor activity is appropriate. Appearance is casual. Speech is Appropriate. Mood is euthymic. Affect is full. Thoughts are linear and logical. No evidence of psychosis. Reviewed daily check in sheet and no reports of suicidal ideations or intent. Client Response/Progress/Benefit: [] Pt was an active participant in group discussion. Attentive. Daily symptom tracker notes 08/28 for anxiety. Emotion for today is grateful. Shared with the group that today is her last day of IOP. Able to see significant progress since starting IOP. Reports that groups and topics most beneficial were communication skills and cognitive distortions. Shared that IOP has helped her make perspective changes and learn/utilize skills. I still have panic but its not consuming me. She has her aftercare set-up and while she remains unsure about her return to work she remains optimistic about her future. Benefited from group support and encouragement. Will be discharged from [facility] today. Narrative Note: []
--- NOTE | 2022-09-27 09:46 | BH.AFTERPLAN ---
Aftercare Plan - Demographics Treatment End Date:: 09/27/22 Psychiatrist:: Nicole Stovall Psychiatrist Office #:: [phone] [facility] Therapist:: BenjaminTammy M Therapist Phone #:: [phone] - Plan Details Progress/Aftercare Plan Details:: Tammy has responded well to treatment as evidenced by Tammy consistently attending IOP sessions and her reduction of DSM-5 scores since admission. Tammy was always attentive and receptive to learning during group and individual sessions. Tammy actively applied coping skills outside of IOP and reports overall her mood is improved and she is functioning better than she was several months ago. Tammy?s overall symptom reduction is 37% since admission with anger decreasing by 67%, depression decreasing by 29%, suicidal ideations decreasing by 67%, and anxiety decreasing by 36%. Tammy has increased self-confidence and reports improvement in challenging her perspective. Strategies for Success:: 1. Opposite action! Continue to break that cycle of anxiety and depression by getting up and getting going. 2. Remember that thoughts are thoughts NOT facts and emotions are emotions NOT facts! 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 3. self-care! You deserve to take time for you and you also deserve to face the not so fun self-care 4. Self-compassion! You are human and you will make a mistake?BUT that doesn?t mean you are a failure or not good enough. Give yourself credit for all the wonderful things you do. 5. Continue with exploring your interest and maybe journal?? 6. Practice positive self-talk and keep track of your wins. 7. Remember progress isn?t linear! You may have a setback or bump in the road, but that doesn?t mean you?ve lost all progress. 8. self-reflection and self-awareness. 10. Live in the [place]!! - Appointments Appointments/Referrals to Other Services:: 1. Yamileth gonzales [place] [id number] today 09/27/[address] Hernandez 09/29/22 3. [facility] aftercare starting 09/29/22 if you'd like! - Medications Home Medications: Home Medications fluoxetine 10 mg capsule (Prozac) 20 mg PO DAILY 08/03/22 hydroxyzine pamoate 25 mg capsule (Vistaril) 50 mg PO QHS #60 caps 08/03/22
--- NOTE | 2022-09-27 09:57 | BH.DS_ITS ---
Discharge Summary - Demographics Date of Admission:: 07/28/22 Discharge Date: 09/27/22 Presenting Problems at Admission:: Pt is a 26 year-old female with a history of MDD and BRITTNEY. Pt was referred to [facility] tx by her outpatient psychiatrist, Dr. Hernandez, due to worsening depressive symptoms and fleeting SI. Pt has been unable to work for almost a month due to her worsening symptoms. Pt has been receiving Ketamine tx and this has helped some, but pt still endorses significant depression. Pt presents to [facility] with lack of motivation, anhedonia, avoidance, crying spells, hopelessness, worthlessness, low energy, increased sleep, isolative behaviors, and poor appetite. Pt has moved back home with her parents due to depression impacting her ADLs. Discharge Diagnoses:: Major depressive disorder, recurrent, severe without psychosis F33.2; Generalized anxiety disorder Reason for Discharge:: Pt has accomplished her tx goals AEB her reduction of DSM-5 scores and self-report of improved mood, functioning, and ability to cope with stressors. Pt will continue with outpatient counseling and [facility] aftercare. - Treatment Progress During Treatment & Response: Pt has responded well to treatment as evidenced by Pt consistently attending IOP sessions and her reduction of DSM-5 scores since admission. Pt was always attentive and receptive to learning during group and individual sessions. Pt actively applied coping skills outside of [facility] and reports overall her mood is improved and she is functioning better than she was several months ago. Pt?s overall symptom reduction is 37% since admission with anger decreasing by 67%, depression decreasing by 29%, suicidal ideations decreasing by 67%, and anxiety decreasing by 36%. Pt has increased self- confidence and reports improvement in challenging her perspective. Issues Still to be Addressed:: Self-compassion, anxiety and depression management, managing change, combating distortions, and assertive communication. Discharge Recommendations/Instructions:: Pt will follow up with Dr. Hernandez at [place] [id number] for medication management. Pt is scheduled with Dr. Hernandez on 09/29/22. Pt will see Yamileth gnozales [place] [id number] for individual therapy and pt has an appointment today. Pt plans to participate in the [facility] aftercare program which starts on 09/29/22 for pt. Discharge Handout: Complete Discharge Handout with client on aftercare options and continuity of care.
--- NOTE | 2022-09-27 10:15 | BH.SGPN.GN ---
Behaviors/Verbalizations/Mental Status: []Eye contact is good. Motor activity is appropriate. Appearance is casual. Speech is Appropriate. Mood is euthymic. Affect is full. Thoughts are linear and logical. No evidence of psychosis. Client Response/Progress/Benefit: []Pt was an active participant in group discussions. Attentive during psychoeducation. Participated during interactive discussions in which peers attempted to define crisis. Pt identified several examples of potential crisis. Group also worked together to identify unhealthy responses to crisis which included; isolation, self-harm, overuse of distraction, avoidance, and lashing out. Pt identified she often responds with shutting down or overscheduling herself to avoid dealing with crisis. Benefited from increased understanding of crisis and awareness of personal responses to crisis. Pt will be discharged from [facility] today. Narrative Note: []
--- NOTE | 2022-09-27 11:15 | BH.SGPN.GN ---
Behaviors/Verbalizations/Mental Status: []Client alert and oriented, casually dressed and groomed. Eye contact good. Motor activity appropriate. Speech within normal limits. Affect full, mood euthymic, positive. Thoughts linear, logical, no signs of hallucinations or delusions. Client Response/Progress/Benefit: []Client responded well to session as evidenced by client listening attentively to others and providing strategies during small group discussion. Connected as fellow participants discussed the importance of identifying and addressing personal warning signs. Client identified warning signs for crisis and gained further awareness of earliest warning signs. Client created a crisis action plan to help client better manage warning signs for crisis. Client?s action plan for avoiding responsibilities includes: setting small goals, challenging negative thoughts, opposite action, and having an accountability mert. Client appeared to benefit from creating a crisis action plan and increasing self-awareness. Client has demonstrated significant treatment progress since starting IOP and will discharge from program today.
--- NOTE | 2022-10-03 09:05 | BH.SGPN.GN ---
Behaviors/Verbalizations/Mental Status: [] Eye contact good. Motor activity appropriate. Speech within normal limits. Affect congruent, mood anxious and euthymic. Thoughts linear, logical, no signs of hallucinations or delusions. Reviewed client?s symptom tracker, no risk for suicidal ideation, plan, or intent as of 10/03/2022. Client Response/Progress/Benefit: [] Client's first day in IOP tx. They responded well to session, attentive and listening to fellow participants as they processed with the group. Client shared mental health wins of getting dressed and coming in today to IOP along with going to work. Nodding throughout as others shared and appeared to benefit from the supportive structure and encouragement of the group as they shared what they have gotten out of the program. Client shared that a current stressor for them is work. Recommended continued IOP tx to improve mood stability, increase healthy coping repertoire, and prevent decompensation. Narrative Note: []
== END 2022-09-27 12:04 | disposition home or self-care (01) ==
LOC: BHIOP 08:14
PROVIDERS: Referring Provider Psychiatry & Neurology Psychiatry; Visit Provider Psychiatry & Neurology Psychiatry
DX: F33.2 Major depressive disorder, recurrent severe without psychotic features (principal); F41.1 Generalized anxiety disorder
CPT/HCPCS: S9480; 90853